=== PATIENT | male | born 1960 | race African-American/Black ===

== ENCOUNTER 2017-09-05 00:37 | Inpatient (IN) | payer MEDICAID, MEDICARE ==
--- NOTE | 2017-09-05 01:19 | ED Physician Chart ---
ED Chief Complaint/HPI - Patient Information Date Seen:: 09/05/17 Time Seen:: 01:00 Chief Complaint:: G-tube replacement History of Present Illness:: Patient's G-tube was noted to be out at 2100 yesterday. Allergies:: Allergies Allergy/AdvReac Type Severity Reaction Status Date / Time No Known Allergies Allergy Verified 09/05/17 01:01 Vitals:: Vital Signs - 8 hr 09/05/17 09/05/17 00:40 00:55 Temp 97.7 F HR 79 66 RR 20 18 BP 121/82 O2 Sat % 98 100 Review:: Transfer documents Reviewed ED Review of Systems - Review of Systems General/Constitutional: No fever, No chills, No weight loss, No weakness, No diaphoresis, No edema, No loss of appetite Skin: No skin lesions, No rash, No bruising Head: No headache, No light-headedness Eyes: No loss of vision, No pain, No diplopia ENT: No earache, No nasal drainage, No sore throat, No tinnitus Neck: No neck pain, No swelling, No thyromegaly, No stiffness, No mass noted Cardio Vascular: No chest pain, No palpitations, No PND, No orthopnea, No edema Pulmonary: No SOB, No cough, No sputum, No wheezing GI: No nausea, No vomiting, No diarrhea, No pain, No melena, No hematochezia, No constipation, No hematemesis, Other (see history and physical) G/U: No dysuria, No frequency, No hematuria Musculoskeletal: No bone or joint pain, No back pain, No muscle pain Endocrine: No polyuria, No polydipsia Psychiatric: No prior psych history, No depression, No anxiety, No suicidal ideation Hematopoietic: No bruising, No lymphadenopathy Allergic/Immuno: No urticaria, No angioedema Neurological: No syncope, No focal symptoms, No weakness, No paresthesia, No headache, No seizure, No dizziness, No confusion, No vertigo ED Past Medical History - Past Medical History Past Medical History: DM, PUD/GERD, Seizures Family History: Other Social History: Care Facility (not available) Surgical History: PEG/GTube, other (trach) Psychiatricy History: None Medication: Reviewed Family Medical History - Family Member Mother History Unknown: Yes ED Physical Exam - Physical Examination General/Constitutional: No distress Other Gen/Cons comments:: Chronically ill-appearing; has trach Eyes: Lids, conjuctiva normal Skin: Nl inspection, No rash ENMT: External ears, nose nl, Lips, teeth, gums nl Neck: No bruit, No mass Respiratory: Nl effort/Exclusion, Clear to Auscultation Cardio Vascular: RRR Other Cardio Vascular comments:: Heart sounds are faint GI: No tenderness/rebounding/guarding, No organomegaly, No hernia, Normal BS's Extremities: Normal digits & nails Neuro/Psych: No focal deficits Misc: No paraspinal tenderness ED Labs/Radiology/EKG Results - Radiology Results Results: KUB showed dilated loops of bowel and much stool in the descending colon. KUB after Gastrografin injection showed G-tube to be in GI tract. ED Septic Shock - . Is Septic Shock (SBP<90, OR Lactate>4 mmol\L) present?: No - <6hrs of presentation: Vital Signs: Vital Signs - 8 hr 09/05/17 09/05/17 00:40 00:55 Temp 97.7 F HR 79 66 RR 20 18 BP 121/82 O2 Sat % 98 100 ED Reassessment (Disposition) - Reassessment Reassessment Condition:: Improved - Diagnosis Diagnosis:: G-tube replacement; obstipation - Patient Disposition Admitted to:: Telemetry Spoke to:: Long Coulter Admitting Medical Physician:: Long Coulter Condition at Disposition:: Stable, Improved
[2017-09-05] MEDS ORDERED: Diatrizoate Meglumine/Diatri 30 mL Sol ONE (01:23)
[2017-09-05 01:25] LABS: % BASOPHILS 0.8 % (0.0-2.0); % LYMPHOCYTES 20.5 % (20.0-50.0); % MONOCYTES 5.3 % (2.0-10.0); % NEUTROPHILS 71.4 % (40.0-80.0); BASOPHILE ABSOLUTE 0.1 Th/cumm (0-0.2); EOSINOPHILE ABSOLUTE 0.2 Th/cmm (0.1-0.4); HEMATOCRIT 44.5 % (41.0-60); HEMOGLOBIN 14.5 gm/dL (12-16); LYMPHOCYTE ABSOLUTE 2.3 Th/cmm (1.5-3.0); MEAN CELL VOLUME 89.7 fl (80-99); MEAN CORPUSCULAR HEMOGLOBIN 29.3 pg (26.0-30.0); MEAN CORPUSCULAR HGB CONC 32.6 pg (28.0-36.0); MEAN PLATELET VOLUME 9.4 fl; MONOCYTE ABSOLUTE 0.6 Th/cmm (0.3-1.0); NEUTROPHILE ABSOLUTE 8.1 Th/cmm (1.8-8.0); PLATELET COUNT 241 Th/cmm (150-400); RED BLOOD COUNT 4.96 Mil/cmm (4.30-5.70); WHITE BLOOD COUNT 11.3 Th/cmm (4.8-10.8)
[2017-09-05 01:50] LABS: ANION GAP 8.7 (7.0-16.0); BUN - UREA NITROGEN 21 mg/dL (7-25); CALCIUM SERUM 10.3 mg/dL (8.6-10.3); CARBON DIOXIDE 33.8 mEq/L (21.0-31.0); CHLORIDE 99 mEq/L (98-107); CREATININE - SERUM 0.5 mg/dL (0.7-1.3); GFR AFRICAN-AMERICAN > 60.0 ml/min (>90); GFR NON AFRICAN-AMERICAN > 60.0 ml/min; GLUCOSE 95 mg/dL (70-105); POTASSIUM SERUM 4.5 mEq/L (3.5-5.1); SODIUM SERUM 137 mEq/L (136-145)
[2017-09-05] MEDS: D5-0.9%NS 1,000 ML IV SCH ×2 (03:51→21:21)
[2017-09-05 04:32] VITALS: BP 117/71
--- NOTE | 2017-09-05 07:46 | Diagnostic Imaging Report ---
Upper GI limited HISTORY: G-tube placement COMPARISON: None FINDINGS: Dough Puncher view demonstrates copious stool throughout the colon with probable distended urinary bladder and possible distal fecal impaction. A percutaneous feeding tube is noted. There is generalized gaseous distended loops of bowel. The second and third images demonstrate contrast opacification of the stomach and proximal small bowel. There appear to be contrast overlying the patient. IMPRESSION: Intraluminal confirmation of patient's percutaneous gastric feeding tube. Copious amount of stool which gas distended loops of bowel. There may be distal fecal impaction. Please correlate clinically for constipation and ileus. Prominent soft tissue densities of the pelvis possibly due to retained stool. There may be a distended urinary bladder. A follow-up CT examination would provide additional detail and assessment.
[2017-09-05] MEDS ORDERED: Fleet Enema 135 mL RC PRN (08:03)
[2017-09-05] MEDS ORDERED: Magnesium Citrate 1.75 GM/300 mL Bottle GT ONE (09:00)
[2017-09-05] MEDS ORDERED: Mag Sulfate 2gm/50mL Premix 2 GM/50 ML BAG IV PRN (10:01)
[2017-09-05] MEDS ORDERED: Potassium Chloride 20 mEq ER Tab PO PRN (10:01)
[2017-09-05] MEDS ORDERED: Pneumococcal Vaccine 0.5 mL Vial IM ONE (10:44)
--- NOTE | 2017-09-05 10:47 | History & Physical ---
ADMIT DATE: 09/05/2017 CHIEF COMPLAINT: G-tube malfunction and severe fecal impaction. HISTORY OF PRESENT ILLNESS: The patient is a 56-year-old male with history of chronic respiratory failure and dysphagia and seizure disorder. His G-tube was malfunctioning. Yesterday, he was sent to the ER after G-tube was placed. He was found to have severe ileus and fecal impaction as well. He is being admitted. He can be seen by GI. PAST MEDICAL HISTORY: Significant for possible seizure along with chronic respiratory failure, COPD, seizure disorder, chronic respiratory failure, AFib, muscle spasms and dysphagia and there is a possible history of diabetes as well. SOCIAL HISTORY: No history of recent alcohol, tobacco, or drug use. [facility] lives [facility]. FAMILY HISTORY: Noncontributory. ALLERGIES: No known drug allergies. PAST SURGICAL HISTORY: Positive for G-tube and tracheostomy. MEDICATIONS: All medication reviewed and reconciled. REVIEW OF SYSTEMS: GENERAL: Positive for recent fatigue, but no fevers or chills. HEENT: No recent head trauma or change in vision, taste, hearing, or smell. Oral: No recent pain or discharge. NECK: He has history of tracheostomy. SKIN: No recent rashes. ABDOMEN: No recent pain or distention. GASTROINTESTINAL: He has history of dysphagia and G-tube and recent dislodgement. EXTREMITIES: No recent edema. PSYCHIATRIC: No history of psychosis or hallucinations nor he has history of seizure disorder. CARDIOVASCULAR: He has a history of atrial fibrillation. RESPIRATORY: He has history of chronic respiratory failure and COPD. PHYSICAL EXAMINATION: VITAL SIGNS: Temperature 97.6 degrees, heart rate is 73, respiration is 18, blood pressure 106/67. Currently, no pain. GENERAL: No acute distress, awake. He is alert to name. HEENT: No acute issues. NECK: Tracheostomy is intact. CARDIOVASCULAR: Regular rate and rhythm. ABDOMEN: Nontender, nondistended. G-tube is intact. RESPIRATORY: Decreased breath sounds bilaterally. He has tracheostomy. EXTREMITIES: No edema. PSYCHIATRIC: No psychosis or hallucinations. NEUROLOGIC: He is bedbound. LABORATORY DATA: White count is 11.3; hemoglobin is 14.5; platelet count 241,000. Sodium 137, potassium 4.5, chloride 99, bicarbonate 33.8, BUN 21, creatinine 0.5. KUB shows ileus and severe fecal impaction. ASSESSMENT AND PLAN: 1. G-tube malfunction. 2. Ileus. 3. Fecal impaction. 4. Seizure disorder. 5. Atrial fibrillation. 6. Chronic respiratory failure. 7. Chronic obstructive pulmonary disease. 8. Muscle spasm. 9. Dysphagia. PLAN: Dr. Schuster has been consulted for Pulmonary and Dr. Lance for GI. Enema has been ordered by Dr. Lance. The patient has not had a bowel movement yet. There is a possibility he had a small one yesterday per RN. Follow up on the UA and chest x-ray as well. Prognosis is guarded. Currently, the patient is n.p.o. [facility]# [id number]
--- NOTE | 2017-09-05 11:42 | Diagnostic Imaging Report ---
Portable chest x-ray HISTORY: Leukocytosis, cough Prior exams are not available for comparison. The overall heart size is normal. There is elevation the right hemidiaphragm. Accentuation of interstitial markings within the right perihilar region. However, no definite acute focal processes are seen. Tracheostomy noted. IMPRESSION: 1. Elevation of the right hemidiaphragm with no definite acute focal pulmonary processes.
[2017-09-05] MEDS: Albuterol/Ipratropium Neb 3 ML AERS HHN SCH ×2 (12:27→18:47)
[2017-09-05] MEDS: Levetiracetam 500 mg/5mL 5mL UDSyr *for ORAL USE ONLY GT SCH (16:17)
[2017-09-05] MEDS: Docusate Sodium 100 mg/10 mL UD GT SCH (16:18)
[2017-09-05] MEDS: Morphine Sulfate 4 mg/mL 1mL Syr IVP PRN (16:24)
[2017-09-05 17:05] LABS: A1C % 5.6 % (4.0-6.0)
[2017-09-05] MEDS: POLYETHYLENE GLYCOL 3350 17 GM PACK GT SCH (18:05)
[2017-09-06] MEDS: Albuterol/Ipratropium Neb 3 ML AERS HHN SCH ×2 (00:31→07:29)
--- NOTE | 2017-09-06 01:06 | Consultation ---
DATE OF CONSULTATION: 09/05/2017 TYPE OF CONSULTATION: GASTROENTEROLOGY. REQUESTING PHYSICIAN: Dr. Long Coulter. REASON FOR CONSULTATION: Fecal impaction and G-tube malfunction. HISTORY OF PRESENT ILLNESS: A 56-year-old male with mental delay, chronic respiratory failure and tracheostomy, dysphagia with G-tube insertion and seizure disorder. His G-tube was malfunctioning was replaced in the ER by the ER physician. Imaging including contrast KUB confirmed that the G-tube was in satisfactory position in the stomach. We were asked to see the patient because a KUB also showed fecal impaction. PAST MEDICAL HISTORY: Notable for respiratory insufficiency, COPD, seizure disorder, atrial fibrillation, spastic paraplegia and dysphagia. SOCIAL HISTORY: No recent tobacco, alcohol or drugs. [facility] resident. MEDICATIONS: Here are Tylenol, DuoNeb nebulizer, vitamin C, baby aspirin, Tenormin, baclofen, Colace, Keppra, Ativan, morphine, Zofran, Fleet enema p.r.n., and Depakote. ALLERGIES: None. PHYSICAL EXAMINATION: VITAL SIGNS: Temperature of 98.0, blood pressure 105/70, pulse of 73, respirations 20, O2 sat 98%. GENERAL: The patient is a well-developed, chronically ill-appearing male who is in no acute distress. HEENT: Sclerae are anicteric. Oropharynx clear. CARDIOVASCULAR: Regular rate and rhythm. LUNGS: With occasional rhonchi at the base. ABDOMEN: Soft, slightly distended with normoactive bowel sounds. Intact G-tube. EXTREMITIES: Contractured. RECTAL: Deferred. LABORATORY DATA: WBC 11.3, hemoglobin 14.5, platelet count 241. Creatinine 0.5. IMPRESSION: 1. Dysphagia with G-tube malposition, status post replacement, noted very good position of the stomach by x-ray. 2. Fecal impaction and likely chronic constipation. 3. Mental delay and seizure disorder. RECOMMENDATIONS: 1. Continue stool softeners and laxatives per G-tube and per rectum. 2. Serial KUBs checks until the infection has resolved. 3. G-tube feedings to be titrated up to goal rate as tolerated. Thank you, Dr. Long Coulter for involving us in the care of your patient. If you have any further questions, please call us. JOB# [id number] MARIEL
[2017-09-06 06:16] LABS: % BASOPHILS 0.9 % (0.0-2.0); % EOSINOPHILS 1.9 % (0.0-5.0); % LYMPHOCYTES 31.8 % (20.0-50.0); % MONOCYTES 10.1 % (2.0-10.0); % NEUTROPHILS 55.3 % (40.0-80.0); BASOPHILE ABSOLUTE 0.1 Th/cumm (0-0.2); EOSINOPHILE ABSOLUTE 0.2 Th/cmm (0.1-0.4); HEMATOCRIT 38.9 % (41.0-60); HEMOGLOBIN 12.9 gm/dL (12-16); MEAN CELL VOLUME 89.4 fl (80-99); MEAN CORPUSCULAR HEMOGLOBIN 29.6 pg (26.0-30.0); MEAN CORPUSCULAR HGB CONC 33.1 pg (28.0-36.0); MEAN PLATELET VOLUME 9.7 fl; MONOCYTE ABSOLUTE 0.9 Th/cmm (0.3-1.0); NEUTROPHILE ABSOLUTE 5.1 Th/cmm (1.8-8.0); PLATELET COUNT 199 Th/cmm (150-400); RED BLOOD COUNT 4.35 Mil/cmm (4.30-5.70); RED CELL DISTRIBUTION WIDTH 15.2 % (11.5-20.0); WHITE BLOOD COUNT 9.3 Th/cmm (4.8-10.8)
[2017-09-06 06:32] LABS: ANION GAP 9.1 (7.0-16.0); BUN - UREA NITROGEN 24 mg/dL (7-25); CALCIUM SERUM 9.4 mg/dL (8.6-10.3); CHLORIDE 103 mEq/L (98-107); CREATININE - SERUM 0.5 mg/dL (0.7-1.3); GFR AFRICAN-AMERICAN > 60.0 ml/min (>90); GFR NON AFRICAN-AMERICAN > 60.0 ml/min; GLUCOSE 95 mg/dL (70-105); POTASSIUM SERUM 4.1 mEq/L (3.5-5.1); SODIUM SERUM 137 mEq/L (136-145)
--- NOTE | 2017-09-06 07:38 | Consultation ---
DATE OF CONSULTATION: 09/05/[address] Coulter. Thank you very much, Dr. Coulter for this consultation. HISTORY OF PRESENT ILLNESS: This is a 56-year-old male with history of chronic respiratory failure, chronic tracheostomy care with a malfunctioning G-tube for evaluation and treatment. The patient is nonverbal, noncommunicative, not appear in acute distress. PAST MEDICAL HISTORY: COPD, seizure disorder, atrial fibrillation. SOCIAL HISTORY: Not available as per chart. No history of smoking or drinking. PHYSICAL EXAMINATION: GENERAL: The patient is nonverbal, not communicative. VITAL SIGNS: Temperature 97.6, pulse 73, respirations is 20, blood pressure is 135/63, saturation 99%. HEENT: Atraumatic, normocephalic. Pupils are equal and reactive to light and accommodation. Ears, nose and throat are normal. NECK: Supple. No JVD. CHEST: There are good breath sounds. No wheezing or crackles. HEART: Regular rate and rhythm. ABDOMEN: Soft. EXTREMITIES: No edema. LABORATORY DATA: WBC 11.3, hemoglobin 14.5, hematocrit 44.5, platelets 241. Sodium 137, potassium 4.5, BUN 21, creatinine 0.5. Chest x-ray showed no obvious infiltrate, tracheostomy tube in place. IMPRESSION: 1. This is a 56-year-old male with chronic respiratory failure, chronic tracheostomy. 2. NG tube malfunctioning. PLAN: 1. Continue nebulizer. 2. Pulmonary toilet. 3. GI evaluation. Thank you very much for this consultation. We will follow the patient with you. [facility]# [id number]
[2017-09-06] MEDS: D5-0.9%NS 1,000 ML IV SCH (08:09)
[2017-09-06] MEDS: Levetiracetam 500 mg/5mL 5mL UDSyr *for ORAL USE ONLY GT SCH (08:09)
[2017-09-06] MEDS: Morphine Sulfate 4 mg/mL 1mL Syr IVP PRN (08:09)
[2017-09-06] MEDS: Docusate Sodium 100 mg/10 mL UD GT SCH (08:09)
[2017-09-06] MEDS: POLYETHYLENE GLYCOL 3350 17 GM PACK GT SCH (08:09)
[2017-09-06] MEDS ORDERED: Aspirin 81mg Chewable Tab GT SCH (09:00)
--- NOTE | 2017-09-06 11:22 | Discharge Summary ---
DATE OF DISCHARGE: 09/06/2017 CAUSE OF ADMISSION: The patient is a 56-year-old male with history of chronic respiratory failure, dysphagia, and seizure disorder. His G-tube was malfunctioning. He was sent to the ER after the G-tube was dislodged. He was found to have severe ileus and fecal impaction as well. ADMITTING DIAGNOSES: 1. G-tube malfunction. 2. Ileus. 3. Fecal impaction. 4. Seizure disorder. 5. Atrial fibrillation. 6. Chronic respiratory failure. 7. Chronic obstructive pulmonary disease. 8. Muscle spasm. 9. Dysphagia. DISCHARGE DIAGNOSES: As above. SUMMARY OF HOSPITAL COURSE: Dr. Lance was consulted for GI. ER had already put in. The G-tube is tolerating the feedings well. Dr. Lance ordered enema. The patient had a several very large bowel movements yesterday evening on 09/05/2017. He is stable. He is being [facility]. Dr. Schuster was consulted for Pulmonary. PHYSICAL EXAMINATION: VITAL SIGNS: Temperature is 96.5 degrees, heart rate is 60, respirations 18, blood pressure 110/54. Currently, no pain. GENERAL: No acute distress. He is awake. NECK: Tracheostomy is intact. CARDIOVASCULAR: Regular rate and rhythm. SKIN: No rash. EXTREMITIES: No edema. PSYCHIATRIC: No psychosis or hallucinations. He does have labile mood. LABORATORY DATA: White count is 9.3; hemoglobin is 12.9; platelet count 199,000. Sodium 137, potassium 4.1, chloride 103, bicarbonate 29, BUN 24, creatinine 0.5. PROGNOSIS: Fair. ACTIVITY: As tolerated. PROCEDURES: None. CONSULTS: Dr. Schuster for Pulmonary and Dr. Lance for GI. MEDICATIONS: All medication reviewed and reconciled. We will add more stool softeners at the retirement facility. JOB# [id number]
--- NOTE | 2017-09-06 11:45 | GI Progress Note ---
Subjective - Review of Systems Service Date: 09/06/17 Subjective: ABHAY GT FEEDS. HAVING LARGE BM'S. Objective - Results Result Diagrams: 09/06/17 06:02 09/06/17 06:02 Recent Labs: Laboratory Last Values WBC 9.3 Th/cmm (4.8-10.8) 09/06/17 06:02 RBC 4.35 Mil/cmm (4.30-5.70) 09/06/17 06:02 Hgb 12.9 gm/dL (12-16) 09/06/17 06:02 Hct 38.9 % (41.0-60) L 09/06/17 06:02 MCV 89.4 fl (80-99) 09/06/17 06:02 MCH 29.6 pg (26.0-30.0) 09/06/17 06:02 MCHC Differential 33.1 pg (28.0-36.0) 09/06/17 06:02 RDW 15.2 % (11.5-20.0) 09/06/17 06:02 Plt Count 199 Th/cmm (150-400) 09/06/17 06:02 MPV 9.7 fl 09/06/17 06:02 Neutrophils % 55.3 % (40.0-80.0) 09/06/17 06:02 Lymphocytes % 31.8 % (20.0-50.0) 09/06/17 06:02 Monocytes % 10.1 % (2.0-10.0) H 09/06/17 06:02 Eosinophils % 1.9 % (0.0-5.0) 09/06/17 06:02 Basophils % 0.9 % (0.0-2.0) 09/06/17 06:02 Sodium 137 mEq/L (136-145) 09/06/17 06:02 Potassium 4.1 mEq/L (3.5-5.1) 09/06/17 06:02 Chloride 103 mEq/L (98-107) 09/06/17 06:02 Carbon Dioxide 29.0 mEq/L (21.0-31.0) 09/06/17 06:02 Anion Gap 9.1 (7.0-16.0) 09/06/17 06:02 BUN 24 mg/dL (7-25) 09/06/17 06:02 Creatinine 0.5 mg/dL (0.7-1.3) L 09/06/17 06:02 Est GFR ( Amer) > 60.0 ml/min (>90) 09/06/17 06:02 Est GFR (Non-Af Amer) > 60.0 ml/min 09/06/17 06:02 BUN/Creatinine Ratio 48.0 09/06/17 06:02 Glucose 95 mg/dL (70-105) 09/06/17 06:02 Hemoglobin A1c % 5.6 % (4.0-6.0) 09/05/17 01:15 Calcium 9.4 mg/dL (8.6-10.3) 09/06/17 06:02 - Physical Exam Vitals and I&O: Vital Signs Temp 96.5 F 09/06/17 08:00 Pulse 66 09/06/17 08:10 Resp 20 09/06/17 08:00 BP 95/56 09/06/17 08:10 Pulse Ox 95 09/06/17 08:00 Intake & Output 09/05/17 09/06/17 09/06/17 18:59 06:59 18:59 Intake Total 1250 810 Balance 1250 810 Weight (lbs) 57.833 kg 57.606 kg Intake: Intake, IV Amount 1000 810 D5-0.9%Ns 1,000 ml @ 75 1000 810 mls/hr IV .[id number] [facility] Rx #:[id number] Tube Feeding 250 Other: # Voids 2 3 # Bowel Movements 2 1 Stool Characteristics Soft Soft Formed Formed Brown Brown Weight Source Bedscale Bedscale Active Medications: Current Medications Acetaminophen (Tylenol) 650 mg PO Q6H PRN PRN Reason: HEADACHE/TEMP ABOVE 100F Stop: 11/04/17 10:00 Albuterol/Ipratropium (Duoneb Neb) 3 ml HHN Q6HRT [facility] Stop: 11/04/17 12:59 Last Admin: 09/06/17 07:29 Dose: 3 ml Ascorbic Acid (Vitamin C) 500 mg GT BID [facility] Stop: 11/04/17 16:59 Last Admin: 09/06/17 08:09 Dose: 500 mg Aspirin (Aspirin Chewable) 81 mg GT DAILY [facility] Stop: 11/05/17 08:59 Last Admin: 09/06/17 08:09 Dose: 81 mg Atenolol (Tenormin) 50 mg GT DAILY [facility] Stop: 11/05/17 08:59 Last Admin: 09/06/17 08:10 Dose: Not Given Baclofen (Lioresal) 10 mg GT Q8HR [facility] Stop: 11/04/17 12:59 Last Admin: 09/06/17 05:10 Dose: 10 mg Docusate Sodium (Colace) 100 mg GT BID [facility] Stop: 11/04/17 16:59 Last Admin: 09/06/17 08:09 Dose: 100 mg Dextrose/Sodium Chloride (D5-0.9%Ns) 1,000 mls @ 75 mls/hr IV .[id number] [facility] Stop: 11/04/17 02:28 Last Admin: 09/06/17 08:09 Dose: 75 mls/hr Magnesium Sulfate (Magnesium Sulfate Premix) 2 gm in 50 mls @ 25 mls/hr IV DAILY PRN PRN Reason: Magnesium level less than 1.6 Stop: 11/04/17 10:00 Levetiracetam (Keppra) 500 mg GT BID [facility] Stop: 11/04/17 16:59 Last Admin: 09/06/17 08:09 Dose: 500 mg Lorazepam (Ativan) 1 mg IVP Q4HR PRN; Protocol PRN Reason: Anxiety Stop: 11/04/17 10:00 Magnesium Oxide (Mag-Oxide) 400 mg PO BID PRN PRN Reason: Mg less than 1.9 Stop: 11/04/17 10:00 Morphine Sulfate (Morphine) 1 mg IVP Q4HR PRN PRN Reason: Severe Pain Stop: 11/04/17 10:00 Last Admin: 09/06/17 08:09 Dose: 1 mg Ondansetron HCl (Zofran) 4 mg IVP Q6H PRN PRN Reason: Nausea / Vomiting Stop: 11/04/17 10:00 Polyethylene Glycol (Miralax) 17 gm GT DAILY [facility] Stop: 11/04/17 17:29 Last Admin: 09/06/17 08:09 Dose: 17 gm Potassium Chloride (Klor-Con) 40 meq PO DAILY PRN PRN Reason: k level less than 3.5 Stop: 11/04/17 10:00 Sodium Phosphate (Fleet Enema) 135 ml RC DAILY PRN PRN Reason: Constipation Stop: 11/04/17 08:02 Last Admin: 09/05/17 09:41 Dose: 135 ml Valproate Sodium (Depakene) 750 mg GT Q8HR [facility] PRN Reason: Protocol Stop: 11/04/17 12:59 Last Admin: 09/06/17 05:10 Dose: 750 mg General: No acute distress HEENT: Atraumatic Neck: Supple Cardiovascular: Regular rate Lungs: Clear to auscultation Abdomen: Bowel sounds, Soft, Other (INTACT GT) Assessment/Plan - Assessment Assessment: IMPRESSION: 1. DYSPHAGIA S/P G TUBE REPLACEMENT. 2. FECAL IMPACTION, IMPROVED WITH LAXATIVES. RECS: 1. GT FEEDS ABHAY. 2. GT CARE. 3. LAXATIVES. GI ALBERTO STABLE.
== END 2017-09-06 13:15 | DRG 252 ==
LOC: ER 00:37 → TELE 02:09
PROVIDERS: ADMIT General Practice; ATTEND General Practice
PROC: 0D20XUZ Change Feeding Device in Upper Intestinal Tract, External Approach (ICD-10-PCS; principal; 2017-09-05)
DX: K94.23 Gastrostomy malfunction (principal); J96.10 Chronic respiratory failure, unspecified whether with hypoxia or hypercapnia; Z93.0 Tracheostomy status; I48.91 Unspecified atrial fibrillation; R13.10 Dysphagia, unspecified; K56.7 Ileus, unspecified; G40.909 Epilepsy, unspecified, not intractable, without status epilepticus; J44.9 Chronic obstructive pulmonary disease, unspecified; K56.41 Fecal impaction; E11.9 Type 2 diabetes mellitus without complications; K21.9 Gastro-esophageal reflux disease without esophagitis; M62.838 Other muscle spasm; Y83.8 Other surgical procedures as the cause of abnormal reaction of the patient, or of later complication, without mention of misadventure at the time of the procedure; Y92.89 Other specified places as the place of occurrence of the external cause
CPT/HCPCS: 36415-UA; 71045-TC; 74000-TC; 80048-TC; 83036-90; 85025-TC; 90732; 94640; 94760; J7042; Z7610